=== PATIENT | female | born 1935 | race African-American/Black ===

== ENCOUNTER 2020-02-08 20:44 | Inpatient (IN) | payer MEDICARE, OTHER ==
[~2020-02-08] VITALS: Ht 162.6 cm; Wt 65.8 kg
[~2020-02-08 20:44] MED LIST: AMLO1TAB15; ASPI-1497 MT; BENICAR; CLONIDINE; EXFORGE; HYDR100T26 PO; HYDROCODONE/ACETAMINOPHEN; LASIX; LOSA25TA26 MT; METOPROLOL; PHEN100C12 PO; POTA10TA15 MT; VICODIN
[2020-02-08] MEDS ORDERED: LIDOCAINE HCL/EPINEPHRINE 1%-EPI 1:100,000 30 ML VIAL INFIL ONE (21:30)
[2020-02-08] MEDS ORDERED: TETANUS, DIPHTHERIA, PERTUSSIS VAC/PF 0.5ML (>7YR OLD) IM ONE (21:30)
[2020-02-08] MEDS ORDERED: LIDOCAINE 1%/EPI 1:100,000 10 ML VIAL IJ SCH (23:15)
[2020-02-09] VITALS (11 sets, daily range): BP systolic 133–188; BP diastolic 67–84
[2020-02-09 00:01] LABS: CHLORIDE 110 mEq/L (98-107)
[2020-02-09 01:06] LABS: MEAN CORPUSCULAR VOLUME 53.7 fL (81.0-99.0); MEAN PLATELET VOLUME 8.4 fl (7.4-10.4); PLATELET 280 x1000/uL (130-400); RED BLOOD CELL COUNT 2.45 mill/uL (4.2-5.4); RED CELL DISTRIBUTION WIDTH 22.2 % (11.6-14.6)
[2020-02-09 01:29] LABS: HEMATOCRIT. 13.2 % (36.0-48.0); HEMOGLOBIN. 3.9 g/dL (12.0-16.0)
[2020-02-09 02:30] LABS: PLATELET ESTIMATE NORMAL
[2020-02-09] MEDS ORDERED: IOHEXOL-300 100 ML BOTTLE ONE (03:13)
[2020-02-09 09:24] LABS: CLARITY URINE CLOUDY (CLEAR); COLOR URINE YELLOW (YELLOW); KETONES URINE NEGATIVE (NEGATIVE); LEUKOCYTE ESTERASE URINE 1+ (NEGATIVE); NITRITE URINE POSITIVE (NEGATIVE); OCCULT BLOOD URINE NEGATIVE (NEGATIVE); PROTEIN URINE NEGATIVE (NEGATIVE); SPECIFIC GRAVITY URINE 1.025 (1.005-1.030); UROBILINOGEN URINE 0.2 E.U./dL (0.2-1.0)
[2020-02-09] MEDS: CLONIDINE 0.1MG TABLET PO PRN ×2 (11:41→23:49)
[2020-02-09] MEDS ORDERED: PHEN-434 MT (13:42)
[2020-02-09] MEDS ORDERED: APIX2.5T PO (13:42)
[2020-02-09] MEDS ORDERED: MIRT15TA6 PO (13:42)
[2020-02-09] MEDS ORDERED: CLON0.1T PO (13:42)
[2020-02-09] MEDS ORDERED: SERT20OR6 PO (13:42)
[2020-02-09] MEDS ORDERED: METO-293 PO (13:43)
[2020-02-09] MEDS ORDERED: INFLUENZA VACCINE 05/PF 0.5 ML VIAL IM ONE (14:00)
[2020-02-09 14:32] LABS: TOTAL IRON BINDING CAPACITY 401 ug/dL (250-450)
[2020-02-09 14:33] LABS: HEMATOCRIT 18.7 % (36.0-48.0); HEMOGLOBIN 5.7 g/dL (12.0-16.0)
[2020-02-09] MEDS ORDERED: METO25TA6 PO (15:01)
[2020-02-09] MEDS: HYDRALAZINE HCL 100MG TABLET PO SCH (21:53)
[2020-02-09] MEDS: METOPROLOL TARTRATE 25MG TABLET PO SCH (21:53)
[2020-02-10] VITALS (9 sets, daily range): BP systolic 120–175; BP diastolic 52–81
[2020-02-10] MEDS: HYDRALAZINE HCL 100MG TABLET PO SCH ×3 (05:25→21:29)
[2020-02-10] MEDS ORDERED: SORBITOL 70% SOLN 30ML PO SCH (07:00)
[2020-02-10 07:45] LABS: CHLORIDE 111 mEq/L (98-107)
[2020-02-10 09:00] LABS: HEMATOCRIT. 23.5 % (36.0-48.0); HEMOGLOBIN. 7.6 g/dL (12.0-16.0); MEAN CORPUSCULAR HEMOGLOBIN 21.8 pg (28.0-32.0); MEAN CORPUSCULAR VOLUME 67.6 fL (81.0-99.0); MEAN PLATELET VOLUME 8.5 fl (7.4-10.4); PLATELET 219 x1000/uL (130-400); RED BLOOD CELL COUNT 3.47 mill/uL (4.2-5.4); RED CELL DISTRIBUTION WIDTH 35.5 % (11.6-14.6)
[2020-02-10] MEDS ORDERED: CLONIDINE 0.1MG TABLET PO SCH (09:00)
[2020-02-10] MEDS: METOPROLOL TARTRATE 25MG TABLET PO SCH ×2 (09:20→21:28)
[2020-02-10] MEDS: CLONIDINE 0.1MG TABLET PO SCH ×2 (09:21→21:29)
[2020-02-10 11:00] LABS: HEMATOCRIT 25.6 % (36.0-48.0); HEMOGLOBIN 8.3 g/dL (12.0-16.0)
[2020-02-10] MEDS: IRON SUCROSE COMPLEX 100 MG/5 ML ML IV SCH (12:00)
[2020-02-10 17:06] LABS: PLATELET ESTIMATE NORMAL
[2020-02-10 18:17] LABS: HEMATOCRIT 22.7 % (36.0-48.0); HEMOGLOBIN 7.3 g/dL (12.0-16.0)
[2020-02-11] VITALS (7 sets, daily range): BP systolic 101–158; BP diastolic 38–65
[2020-02-11 06:46] LABS: HEMATOCRIT. 23.1 % (36.0-48.0); HEMOGLOBIN. 7.5 g/dL (12.0-16.0); MEAN CORPUSCULAR HEMOGLOBIN 21.9 pg (28.0-32.0); MEAN CORPUSCULAR VOLUME 67.5 fL (81.0-99.0); MEAN PLATELET VOLUME 8.4 fl (7.4-10.4); PLATELET 217 x1000/uL (130-400); RED BLOOD CELL COUNT 3.42 mill/uL (4.2-5.4)
[2020-02-11] MEDS: HYDRALAZINE HCL 100MG TABLET PO SCH ×3 (06:49→21:36)
[2020-02-11 07:04] LABS: CHLORIDE 112 mEq/L (98-107)
[2020-02-11] MEDS: CLONIDINE 0.1MG TABLET PO SCH ×2 (08:51→21:36)
[2020-02-11] MEDS: METOPROLOL TARTRATE 25MG TABLET PO SCH ×2 (08:52→21:36)
[2020-02-11] MEDS ORDERED: AMLODIPINE 5MG TABLET PO NR (11:30)
[2020-02-11] MEDS: IRON SUCROSE COMPLEX 100 MG/5 ML ML IV SCH (12:08)
[2020-02-11 13:16] LABS: NUCLEATED RED BLOOD CELLS 2 /100 WBC
[2020-02-11 13:17] LABS: PLATELET ESTIMATE NORMAL
[2020-02-11] MEDS ORDERED: SORBITOL 70% SOLN 30ML PO PRN (13:30)
[2020-02-11] MEDS: AMLODIPINE 5MG TABLET PO SCH (21:36)
[2020-02-12] VITALS: BP 130/55
[2020-02-12 04:00] VITALS: BP 117/63
[2020-02-12] MEDS: HYDRALAZINE HCL 100MG TABLET PO SCH ×2 (06:44→13:00)
[2020-02-12 08:00] VITALS: BP 169/95
[2020-02-12] MEDS: CLONIDINE 0.1MG TABLET PO SCH (08:51)
[2020-02-12] MEDS: METOPROLOL TARTRATE 25MG TABLET PO SCH (08:51)
[2020-02-12] MEDS: AMLODIPINE 5MG TABLET PO SCH (08:51)
[2020-02-12] MEDS ORDERED: ACETAMINOPHEN 650MG/20.3ML UDC PO PRN (11:15)
[2020-02-12] MEDS ORDERED: ACETAMINOPHEN 325MG TABLET PO PRN (11:15)
[2020-02-12] MEDS: IRON SUCROSE COMPLEX 100 MG/5 ML ML IV SCH (11:19)
[2020-02-12 12:00] VITALS: BP 143/56
[2020-02-12 12:01] LABS: HEMATOCRIT. 25.5 % (36.0-48.0); MEAN CORPUSCULAR VOLUME 69.7 fL (81.0-99.0); MEAN PLATELET VOLUME 8.5 fl (7.4-10.4); PLATELET 216 x1000/uL (130-400); RED BLOOD CELL COUNT 3.65 mill/uL (4.2-5.4); RED CELL DISTRIBUTION WIDTH 37.3 % (11.6-14.6)
[2020-02-12 12:36] LABS: CHLORIDE 109 mEq/L (98-107)
[2020-02-12 12:58] LABS: NUCLEATED RED BLOOD CELLS 1 /100 WBC
[2020-02-12 12:59] LABS: PLATELET ESTIMATE NORMAL
[2020-02-12] MEDS ORDERED: LIDOCAINE 5% PATCH TOP ONE (13:00)
[2020-02-12 16:00] VITALS: BP 144/64
[2020-02-12 16:36] VITALS: BP 144/64
== END 2020-02-12 18:41 | disposition home health service (06) | DRG 384 ==
LOC: ER 20:44 → 5WST 02-09 02:37 → CANRESERV 02-09 03:53 → ENRESERV 02-09 03:53
PROVIDERS: ADMIT Internal Medicine; ATTEND Internal Medicine
PROC: 0HQ1XZZ Repair Face Skin, External Approach (ICD-10-PCS; 2020-02-08)
PROC: 30233N1 Transfusion of Nonautologous Red Blood Cells into Peripheral Vein, Percutaneous Approach (ICD-10-PCS; principal; 2020-02-09)
DX: S01.91XA Laceration without foreign body of unspecified part of head, initial encounter (principal); D50.0 Iron deficiency anemia secondary to blood loss (chronic); G40.909 Epilepsy, unspecified, not intractable, without status epilepticus; I10 Essential (primary) hypertension; E87.6 Hypokalemia; F03.90 Unspecified dementia, unspecified severity, without behavioral disturbance, psychotic disturbance, mood disturbance, and anxiety; E78.00 Pure hypercholesterolemia, unspecified; M19.90 Unspecified osteoarthritis, unspecified site; F02.80 Dementia in other diseases classified elsewhere, unspecified severity, without behavioral disturbance, psychotic disturbance, mood disturbance, and anxiety; S09.90XA Unspecified injury of head, initial encounter; E88.09 Other disorders of plasma-protein metabolism, not elsewhere classified; R17 Unspecified jaundice; K21.9 Gastro-esophageal reflux disease without esophagitis; I27.20 Pulmonary hypertension, unspecified; I34.0 Nonrheumatic mitral (valve) insufficiency; W06.XXXA Fall from bed, initial encounter; Z86.73 Personal history of transient ischemic attack (TIA), and cerebral infarction without residual deficits; Z79.82 Long term (current) use of aspirin; Z79.899 Other long term (current) drug therapy; Z90.710 Acquired absence of both cervix and uterus; Z79.01 Long term (current) use of anticoagulants; Y93.89 Activity, other specified; Y92.89 Other specified places as the place of occurrence of the external cause; Y99.8 Other external cause status; I25.10 Atherosclerotic heart disease of native coronary artery without angina pectoris; I48.0 Paroxysmal atrial fibrillation; E80.6 Other disorders of bilirubin metabolism; E44.0 Moderate protein-calorie malnutrition; Z68.24 Body mass index [BMI] 24.0-24.9, adult
CPT/HCPCS: 36415; 71045; 73600; 74177; 80048; 80053; 81003; 82247; 82248; 82728; 83540; 83550; 84484; 85014; 85018; 85025; 86850; 86900; 86920; 90686; 90715; 93005; 93306; 97162; 97530; 99285; P9016; Q9967

== ENCOUNTER 2020-07-21 12:56 | Emergency (ER) | payer MEDICARE, MEDICAID ==
[~2020-07-21] VITALS: Ht 162.6 cm; Wt 54.0 kg
[~2020-07-21 12:56] MED LIST changes: -AMLO1TAB15; -ASPI-1497 MT; -BENICAR; +CLON0.1T PO; -CLONIDINE; +DILT30TA3 MT; +DOCU-272 MT; -EXFORGE; +FERR324T4 MT; +HYDR-4001 PO; -HYDROCODONE/ACETAMINOPHEN; -LASIX; -LOSA25TA26 MT; +METO25TA6 PO; -METOPROLOL; +MIRT15TA6 PO; +PHEN-434 MT; -POTA10TA15 MT; +SERT20OR6 PO; -VICODIN
[2020-07-21 14:07] LABS: HEMATOCRIT. 33.8 % (36.0-48.0); HEMOGLOBIN. 10.9 g/dL (12.0-16.0); MEAN CORPUSCULAR HEMOGLOBIN 27.4 pg (28.0-32.0); MEAN CORPUSCULAR VOLUME 84.7 fL (81.0-99.0); MEAN PLATELET VOLUME 7.2 fl (7.4-10.4); PLATELET 231 x1000/uL (130-400); RED BLOOD CELL COUNT 3.99 mill/uL (4.2-5.4); RED CELL DISTRIBUTION WIDTH 27.6 % (11.6-14.6)
[2020-07-21 14:15] LABS: CHLORIDE 108 mEq/L (98-107)
[2020-07-21 14:18] LABS: PROTHROMBIN TIME 11.2 sec (9.6-11.0)
[2020-07-21 14:27] LABS: PLATELET ESTIMATE NORMAL
[2020-07-21 18:03] VITALS: BP 150/70
== END 2020-07-21 18:35 | disposition home or self-care (01) ==
LOC: ER 12:56
DX: K92.2 Gastrointestinal hemorrhage, unspecified (principal); E78.00 Pure hypercholesterolemia, unspecified; I10 Essential (primary) hypertension; G40.909 Epilepsy, unspecified, not intractable, without status epilepticus; I48.91 Unspecified atrial fibrillation; E11.9 Type 2 diabetes mellitus without complications; Z86.73 Personal history of transient ischemic attack (TIA), and cerebral infarction without residual deficits; Z85.038 Personal history of other malignant neoplasm of large intestine; Z93.3 Colostomy status; Z79.01 Long term (current) use of anticoagulants
CPT/HCPCS: 36415; 74176; 80053; 82270; 85025; 86850; 86900; 93005; 99285

== ENCOUNTER 2021-10-13 00:12 | Inpatient (IN) | payer MEDICARE, OTHER ==
[2021-10-13] VITALS (51 sets, daily range): BP systolic 86–143; BP diastolic 43–101
[~2021-10-13] VITALS: Ht 167.6 cm; Wt 57.2 kg
[~2021-10-13 00:12] MED LIST changes: +DOCU-268 MT; -DOCU-272 MT; +MIRT-89 PO; -MIRT15TA6 PO
[2021-10-13 00:48] LABS: HEMATOCRIT. 28.8 % (36.0-48.0); HEMOGLOBIN. 9.6 g/dL (12.0-16.0); MEAN CORPUSCULAR HEMOGLOBIN 30.3 pg (28.0-32.0); MEAN CORPUSCULAR VOLUME 90.6 fL (81.0-99.0); MEAN PLATELET VOLUME 6.9 fl (7.4-10.4); PLATELET 427 x1000/uL (130-400); RED BLOOD CELL COUNT 3.18 mill/uL (4.2-5.4); RED CELL DISTRIBUTION WIDTH 14.3 % (11.6-14.6)
[2021-10-13 01:03] LABS: CHLORIDE 102 mEq/L (98-107); ETHANOL BLOOD < 10 mg/dL
[2021-10-13] MEDS ORDERED: ALTEPLASE 100MG/VIAL IV STA (01:41)
[2021-10-13] MEDS ORDERED: ALTEPLASE IV STA (01:41)
[2021-10-13] MEDS ORDERED: IOHEXOL-350 100 ML BOTTLE ONE (01:51)
[2021-10-13] MEDS ORDERED: GUAIFENESIN 200MG/10ML SUGAR FREE UDC PO PRN (02:45)
[2021-10-13] MEDS ORDERED: CONTAINER EMPTY IV NR (02:45)
[2021-10-13] MEDS ORDERED: *NO ASPIRIN X 24 HOURS XX SCH (02:45)
[2021-10-13] MEDS ORDERED: ALTEPLASE 50MG/VIAL IV NR (02:45)
[2021-10-13] MEDS ORDERED: IPRATROPIUM/ALBUTEROL 0.5-3(2.5)MG/3ML NEB NEB PRN (02:45)
[2021-10-13] MEDS ORDERED: ONDANSETRON HCL 4MG/2ML INJ IV PRN (02:45)
[2021-10-13] MEDS ORDERED: DEXTROSE 50% WATER 50ML SYRINGE IV PRN (02:45)
[2021-10-13] MEDS ORDERED: ACETAMINOPHEN 325MG TABLET PO PRN ×2 (02:45)
[2021-10-13] MEDS ORDERED: ENOXAPARIN 40MG/0.4ML SYR SUBCUT SCH (02:45)
[2021-10-13] MEDS ORDERED: ALTEPLASE IV NR (02:45)
[2021-10-13] MEDS ORDERED: HYDROCODONE/ACETAMINOPHEN 5/325MG TABLET PO PRN (02:45)
[2021-10-13] MEDS ORDERED: CLONIDINE 0.1MG TABLET PO PRN (02:45)
[2021-10-13] MEDS ORDERED: MAGNESIUM/ALUMINUM HYDROXIDE/SIMETHICONE 30ML UDC PO PRN (02:45)
[2021-10-13] MEDS ORDERED: ENOXAPARIN 30MG/0.3ML SYR SUBCUT SCH (04:01)
[2021-10-13 05:56] LABS: BASOPHILS % 0.2 % (0.0-2.0); CHLORIDE 101 mEq/L (98-107); HEMATOCRIT. 30.4 % (36.0-48.0); HEMOGLOBIN. 10.2 g/dL (12.0-16.0); LYMPHOCYTES % 7.1 % (20.0-50.0); MEAN PLATELET VOLUME 7.1 fl (7.4-10.4); NEUTROPHILS % 87.7 % (40.0-76.0); PLATELET 429 x1000/uL (130-400); RED BLOOD CELL COUNT 3.38 mill/uL (4.2-5.4); RED CELL DISTRIBUTION WIDTH 14.5 % (11.6-14.6)
[2021-10-13 06:11] LABS: PHOSPHORUS 1.7 mg/dL (2.5-4.9)
[2021-10-13 06:29] LABS: FOLIC ACID (FOLATE) SERUM 8.6 ng/mL (>5.38)
[2021-10-13 08:10] LABS: TOTAL IRON BINDING CAPACITY 141 ug/dL (250-450)
[2021-10-13] MEDS: INSULIN LISPRO 100 UNITS/ML SUBCUT SCH ×4 (08:20→21:00)
[2021-10-13] MEDS: BLOOD SUGAR DIAGNOSTIC STRIP TEST SCH ×4 (09:00→21:18)
[2021-10-13] MEDS ORDERED: NALOXONE HCL 0.4MG/ML VIAL IV PRN (09:45)
[2021-10-13] MEDS: MORPHINE SULFATE 2 MG/ML CPJ (NOT FOR IM USE) IV PRN ×3 (10:03→20:16)
[2021-10-13 10:13] LABS: PLATELET ESTIMATE INCREASED
[2021-10-13] MEDS ORDERED: PANTOPRAZOLE SODIUM 40 MG/VIAL IV NR (12:30)
[2021-10-13] MEDS: SODIUM CHLORIDE 0.9% 1,000 ML IV SCH (14:11)
[2021-10-13 15:28] LABS: CLARITY URINE TURBID (CLEAR); COLOR URINE RED (YELLOW); KETONES URINE NEGATIVE (NEGATIVE); LEUKOCYTE ESTERASE URINE 3+ (NEGATIVE); NITRITE URINE POSITIVE (NEGATIVE); OCCULT BLOOD URINE 2+ (NEGATIVE); PH URINE >=9.0 (4.5-8.0); PROTEIN URINE 3+ (NEGATIVE); UROBILINOGEN URINE 0.2 E.U./dL (0.2-1.0)
[2021-10-13 15:51] LABS: *AMPHETAMINES SCREEN URINE NEGATIVE (NEGATIVE); *BARBITURATES SCREEN URINE NEGATIVE (NEGATIVE); *BENZODIAZEPINES SCREEN URINE NEGATIVE (NEGATIVE); *COCAINE SCREEN URINE NEGATIVE (NEGATIVE); CANNABINOID URINE SCREEN NEGATIVE (NEGATIVE); METHADONE URINE SCREEN NEGATIVE (NEGATIVE); OPIATES URINE SCREEN PRESUMTIVE POSITIVE (NEGATIVE); PHENCYCLIDINE URINE SCREEN NEGATIVE (NEGATIVE)
[2021-10-13] MEDS: CEFEPIME 2,000 MG in DEXT 5% WATER 100 ML IV SCH (17:19)
[2021-10-13] MEDS ORDERED: VANCOMYCIN 1.25GM PMX (XELLIA) 250 ML IV NR (18:00)
[2021-10-13] MEDS ORDERED: DILTIAZEM HCL 5MG/ML 5ML VIAL IV NR (18:15)
[2021-10-13] MEDS: PANTOPRAZOLE SODIUM 40 MG/VIAL IV SCH (18:39)
[2021-10-13] MEDS ORDERED: AMIODARONE HCL 150 MG in DEXT 5% WATER 100 ML IV NR (20:00)
[2021-10-13] MEDS: AMIODARONE HCL 900 MG in DEXT 5% WATER 482 ML IV SCH (20:08)
[2021-10-13] MEDS: ACETAMINOPHEN 650MG SUPP PR PRN (20:20)
[2021-10-13] MEDS: PHENYTOIN SODIUM 100MG/2ML VIAL IV SCH (21:25)
[2021-10-13] MEDS ORDERED: PHENYLEPHRINE 50 MG in DEXT 5% WATER 245 ML IV PRN (22:00)
[2021-10-13] MEDS ORDERED: VASOPRESSIN 20 UNIT in SODIUM CHLORIDE 0.9% 99 ML IV PRN (22:00)
[2021-10-13] MEDS ORDERED: FURO20TA4 MT (22:25)
[2021-10-14] VITALS (90 sets, daily range): BP systolic 72–141; BP diastolic 41–113
[2021-10-14] MEDS: MORPHINE SULFATE 2 MG/ML CPJ (NOT FOR IM USE) IV PRN ×5 (01:19→21:53)
[2021-10-14] MEDS ORDERED: IOHEXOL-300 100 ML BOTTLE ONE (03:52)
[2021-10-14] MEDS: SODIUM CHLORIDE 0.9% 1,000 ML IV SCH ×2 (03:57→16:51)
[2021-10-14 05:47] LABS: HEMATOCRIT. 24.4 % (36.0-48.0); HEMOGLOBIN. 8.2 g/dL (12.0-16.0); MEAN CORPUSCULAR HEMOGLOBIN 30.2 pg (28.0-32.0); MEAN CORPUSCULAR VOLUME 89.4 fL (81.0-99.0); MEAN PLATELET VOLUME 6.7 fl (7.4-10.4); PLATELET 359 x1000/uL (130-400); RED BLOOD CELL COUNT 2.72 mill/uL (4.2-5.4); RED CELL DISTRIBUTION WIDTH 14.3 % (11.6-14.6)
[2021-10-14 05:52] LABS: CHLORIDE 106 mEq/L (98-107); INR 1.4; PROTHROMBIN TIME 14.7 sec (9.6-11.0)
[2021-10-14] MEDS: BLOOD SUGAR DIAGNOSTIC STRIP TEST SCH ×4 (05:57→21:00)
[2021-10-14 06:01] LABS: PHOSPHORUS 2.6 mg/dL (2.5-4.9)
[2021-10-14] MEDS: PHENYTOIN SODIUM 100MG/2ML VIAL IV SCH ×3 (06:04→21:14)
[2021-10-14] MEDS: INSULIN LISPRO 100 UNITS/ML SUBCUT SCH ×4 (06:05→21:00)
[2021-10-14] MEDS: PANTOPRAZOLE SODIUM 40 MG/VIAL IV SCH ×2 (08:10→16:51)
[2021-10-14] MEDS: CEFEPIME 2,000 MG in DEXT 5% WATER 100 ML IV SCH (08:10)
[2021-10-14] MEDS: FERROUS SULFATE 325MG TABLET PO SCH (09:00)
[2021-10-14] MEDS ORDERED: ENOXAPARIN 30MG/0.3ML SYR SUBCUT SCH (09:00)
[2021-10-14] MEDS ORDERED: SODIUM CHLORIDE 0.9% 1,000 ML IV ONE (13:00)
[2021-10-14] MEDS ORDERED: DIGOXIN 500MCG/2ML AMP IV NR (13:30)
[2021-10-14] MEDS: PIPERACILLIN/TAZOBACTAM 3.375 G in DEXTROSE 5% WATER 50 ML IV SCH ×2 (13:36→21:14)
[2021-10-14 14:01] LABS: PLATELET ESTIMATE NORMAL
[2021-10-14] MEDS ORDERED: VANCOMYCIN 1G PREMIX 200 ML IV SCH (16:00)
[2021-10-14] MEDS: AMIODARONE HCL 900 MG in DEXT 5% WATER 482 ML IV SCH (16:48)
[2021-10-15] VITALS (102 sets, daily range): BP systolic 85–137; BP diastolic 40–82
[2021-10-15] MEDS: MORPHINE SULFATE 2 MG/ML CPJ (NOT FOR IM USE) IV PRN ×4 (04:50→21:03)
[2021-10-15] MEDS: PHENYTOIN SODIUM 100MG/2ML VIAL IV SCH ×3 (05:01→21:03)
[2021-10-15] MEDS: PIPERACILLIN/TAZOBACTAM 3.375 G in DEXTROSE 5% WATER 50 ML IV SCH ×2 (05:01→14:14)
[2021-10-15] MEDS: SODIUM CHLORIDE 0.9% 1,000 ML IV SCH ×2 (05:01→21:02)
[2021-10-15 05:09] LABS: MEAN CORPUSCULAR HEMOGLOBIN 29.4 pg (28.0-32.0); MEAN CORPUSCULAR VOLUME 89.8 fL (81.0-99.0); MEAN PLATELET VOLUME 7.4 fl (7.4-10.4); PLATELET 244 x1000/uL (130-400); RED CELL DISTRIBUTION WIDTH 14.5 % (11.6-14.6)
[2021-10-15 05:12] LABS: CHLORIDE 111 mEq/L (98-107)
[2021-10-15 05:16] LABS: HEMOGLOBIN. 6.7 g/dL (12.0-16.0)
[2021-10-15 05:17] LABS: HEMATOCRIT. 20.6 % (36.0-48.0)
[2021-10-15] MEDS: PANTOPRAZOLE SODIUM 40 MG/VIAL IV SCH ×2 (08:59→16:20)
[2021-10-15] MEDS: VANCOMYCIN 750MG PREMIX 150 ML IV SCH (09:48)
[2021-10-15 11:41] LABS: PLATELET ESTIMATE NORMAL
[2021-10-15] MEDS: ACETAMINOPHEN 650MG SUPP PR PRN (15:49)
[2021-10-15] MEDS: MEROPENEM 1,000 MG in SODIUM CHLORIDE 0.9% 100 ML IV SCH (16:11)
[2021-10-16] VITALS (66 sets, daily range): BP systolic 85–131; BP diastolic 47–86
[2021-10-16] MEDS: AMIODARONE HCL 900 MG in DEXT 5% WATER 482 ML IV SCH (00:52)
[2021-10-16] MEDS: MEROPENEM 1,000 MG in SODIUM CHLORIDE 0.9% 100 ML IV SCH ×2 (05:06→15:00)
[2021-10-16] MEDS: PHENYTOIN SODIUM 100MG/2ML VIAL IV SCH ×3 (05:06→22:01)
[2021-10-16] MEDS: VANCOMYCIN 750MG PREMIX 150 ML IV SCH ×2 (05:07→22:01)
[2021-10-16] MEDS: MORPHINE SULFATE 2 MG/ML CPJ (NOT FOR IM USE) IV PRN ×5 (05:07→20:05)
[2021-10-16 05:56] LABS: CHLORIDE 111 mEq/L (98-107)
[2021-10-16 06:01] LABS: PHOSPHORUS 2.7 mg/dL (2.5-4.9)
[2021-10-16 06:07] LABS: MEAN CORPUSCULAR HEMOGLOBIN 29.9 pg (28.0-32.0); MEAN CORPUSCULAR VOLUME 89.2 fL (81.0-99.0); MEAN PLATELET VOLUME 7.6 fl (7.4-10.4); PLATELET 212 x1000/uL (130-400); RED BLOOD CELL COUNT 3.03 mill/uL (4.2-5.4)
[2021-10-16] MEDS: PANTOPRAZOLE SODIUM 40 MG/VIAL IV SCH ×2 (08:08→19:05)
[2021-10-16] MEDS: FERROUS SULFATE 325MG TABLET PO SCH (08:08)
[2021-10-16] MEDS ORDERED: POTASSIUM PHOS,M-BASIC-D-BASIC 15 MMOL in DEXT 5% WATER 245 ML IV SCH (10:00)
[2021-10-16 10:39] LABS: PLATELET ESTIMATE NORMAL
[2021-10-16] MEDS ORDERED: DIGOXIN 500MCG/2ML AMP IV NR (11:00)
[2021-10-16] MEDS: SODIUM CHLORIDE 0.9% 1,000 ML IV SCH (11:30)
[2021-10-16] MEDS ORDERED: DEXT 5%/0.9% NACL 1,000 ML IV SCH (14:15)
[2021-10-16] MEDS: DEXT 5%/0.9% NACL 1,000 ML IV SCH (14:37)
[2021-10-16] MEDS ORDERED: MAGNESIUM 2 G PREMIX 50 ML IV NR (16:00)
[2021-10-16] MEDS: DIGOXIN 500MCG/2ML AMP IV SCH (19:05)
[2021-10-17] VITALS (12 sets, daily range): BP systolic 109–140; BP diastolic 52–87
[2021-10-17] MEDS: MORPHINE SULFATE 2 MG/ML CPJ (NOT FOR IM USE) IV PRN ×5 (00:26→17:54)
[2021-10-17] MEDS: DEXT 5%/0.9% NACL 1,000 ML IV SCH ×3 (01:09→21:38)
[2021-10-17] MEDS: DILTIAZEM HCL 5MG/ML 5ML VIAL IV PRN (01:44)
[2021-10-17] MEDS: MEROPENEM 1,000 MG in SODIUM CHLORIDE 0.9% 100 ML IV SCH ×2 (04:42→17:09)
[2021-10-17] MEDS: PHENYTOIN SODIUM 100MG/2ML VIAL IV SCH ×3 (06:23→21:38)
[2021-10-17 06:28] LABS: HEMATOCRIT. 27.7 % (36.0-48.0); HEMOGLOBIN. 9.2 g/dL (12.0-16.0); MEAN CORPUSCULAR HEMOGLOBIN 29.3 pg (28.0-32.0); MEAN CORPUSCULAR VOLUME 88.3 fL (81.0-99.0); MEAN PLATELET VOLUME 7.7 fl (7.4-10.4); PLATELET 198 x1000/uL (130-400); RED BLOOD CELL COUNT 3.13 mill/uL (4.2-5.4); RED CELL DISTRIBUTION WIDTH 15.2 % (11.6-14.6)
[2021-10-17 06:39] LABS: CHLORIDE 115 mEq/L (98-107)
[2021-10-17 06:53] LABS: PHOSPHORUS 2.5 mg/dL (2.5-4.9)
[2021-10-17] MEDS: PANTOPRAZOLE SODIUM 40 MG/VIAL IV SCH ×2 (08:36→17:09)
[2021-10-17 11:57] LABS: PLATELET ESTIMATE NORMAL
[2021-10-17] MEDS: DILTIAZEM HCL 30MG TABLET PO SCH ×2 (14:00→21:39)
[2021-10-17] MEDS: VANCOMYCIN 750MG PREMIX 150 ML IV SCH (17:09)
[2021-10-17] MEDS: DIGOXIN 500MCG/2ML AMP IV SCH (17:10)
[2021-10-18] VITALS (12 sets, daily range): BP systolic 106–163; BP diastolic 59–85
[2021-10-18] MEDS: MEROPENEM 1,000 MG in SODIUM CHLORIDE 0.9% 100 ML IV SCH ×2 (04:12→15:17)
[2021-10-18] MEDS: PHENYTOIN SODIUM 100MG/2ML VIAL IV SCH ×3 (05:58→21:44)
[2021-10-18] MEDS: MORPHINE SULFATE 2 MG/ML CPJ (NOT FOR IM USE) IV PRN (05:58)
[2021-10-18] MEDS: DILTIAZEM HCL 30MG TABLET PO SCH ×3 (06:00→21:44)
[2021-10-18 06:48] LABS: HEMATOCRIT. 25.5 % (36.0-48.0); HEMOGLOBIN. 8.5 g/dL (12.0-16.0); MEAN CORPUSCULAR HEMOGLOBIN 29.2 pg (28.0-32.0); MEAN CORPUSCULAR VOLUME 87.9 fL (81.0-99.0); MEAN PLATELET VOLUME 7.7 fl (7.4-10.4); PLATELET 195 x1000/uL (130-400); RED CELL DISTRIBUTION WIDTH 15.5 % (11.6-14.6)
[2021-10-18 07:08] LABS: CHLORIDE 121 mEq/L (98-107)
[2021-10-18 08:12] LABS: PLATELET ESTIMATE NORMAL
[2021-10-18] MEDS: FERROUS SULFATE 325MG TABLET PO SCH (08:32)
[2021-10-18] MEDS: PANTOPRAZOLE SODIUM 40 MG/VIAL IV SCH ×2 (08:32→17:19)
[2021-10-18] MEDS: DEXT 5%/0.9% NACL 1,000 ML IV SCH ×2 (08:32→17:16)
[2021-10-18] MEDS: VANCOMYCIN 750MG PREMIX 150 ML IV SCH (09:40)
[2021-10-18] MEDS ORDERED: POTASSIUM CHLORIDE INJ 40 MEQ in DEXT 5% WATER 250 ML IV ONE (11:00)
[2021-10-18] MEDS: DIGOXIN 500MCG/2ML AMP IV SCH (17:20)
[2021-10-18] MEDS: HYDRALAZINE 20MG/ML VIAL IV PRN (22:37)
[2021-10-19] VITALS (13 sets, daily range): BP systolic 133–169; BP diastolic 68–91
[2021-10-19] MEDS: DEXT 5%/0.9% NACL 1,000 ML IV SCH ×2 (01:43→12:39)
[2021-10-19] MEDS: DILTIAZEM HCL 5MG/ML 5ML VIAL IV PRN (03:29)
[2021-10-19] MEDS: MEROPENEM 1,000 MG in SODIUM CHLORIDE 0.9% 100 ML IV SCH ×2 (04:45→17:03)
[2021-10-19] MEDS: DILTIAZEM HCL 30MG TABLET PO SCH ×3 (05:30→22:00)
[2021-10-19] MEDS: PHENYTOIN SODIUM 100MG/2ML VIAL IV SCH ×3 (05:30→22:04)
[2021-10-19] MEDS: MORPHINE SULFATE 2 MG/ML CPJ (NOT FOR IM USE) IV PRN ×4 (06:13→19:59)
[2021-10-19 07:24] LABS: HEMATOCRIT. 25.7 % (36.0-48.0); HEMOGLOBIN. 8.6 g/dL (12.0-16.0); MEAN CORPUSCULAR HEMOGLOBIN 29.3 pg (28.0-32.0); MEAN CORPUSCULAR VOLUME 87.6 fL (81.0-99.0); MEAN PLATELET VOLUME 7.9 fl (7.4-10.4); PLATELET 246 x1000/uL (130-400); RED BLOOD CELL COUNT 2.93 mill/uL (4.2-5.4); RED CELL DISTRIBUTION WIDTH 15.4 % (11.6-14.6)
[2021-10-19 07:42] LABS: CHLORIDE 123 mEq/L (98-107)
[2021-10-19 08:07] LABS: DIGOXIN 1.4 ng/mL (0.9-2.0)
[2021-10-19] MEDS: PANTOPRAZOLE SODIUM 40 MG/VIAL IV SCH ×2 (08:56→17:31)
[2021-10-19] MEDS ORDERED: POTASSIUM CHLORIDE INJ 40 MEQ in DEXT 5% WATER 250 ML IV ONE (12:15)
[2021-10-19] MEDS: KCL 20MEQ/100ML X 2 FOR TOTAL KCL 40MEQ/200ML IV SCH ×2 (12:41→14:45)
[2021-10-19 13:41] LABS: PLATELET ESTIMATE NORMAL
[2021-10-19] MEDS: DIGOXIN 500MCG/2ML AMP IV SCH (17:31)
[2021-10-20] VITALS (8 sets, daily range): BP systolic 145–179; BP diastolic 61–81
[2021-10-20] MEDS: DEXT 5%/0.9% NACL 1,000 ML IV SCH (03:07)
[2021-10-20] MEDS: MEROPENEM 1,000 MG in SODIUM CHLORIDE 0.9% 100 ML IV SCH (03:07)
[2021-10-20] MEDS: MORPHINE SULFATE 2 MG/ML CPJ (NOT FOR IM USE) IV PRN ×2 (03:07→13:44)
[2021-10-20] MEDS: DILTIAZEM HCL 30MG TABLET PO SCH ×2 (05:19→13:22)
[2021-10-20] MEDS: HYDRALAZINE 20MG/ML VIAL IV PRN ×2 (05:19→12:43)
[2021-10-20] MEDS: PHENYTOIN SODIUM 100MG/2ML VIAL IV SCH ×2 (05:19→13:22)
[2021-10-20] MEDS: PANTOPRAZOLE SODIUM 40 MG/VIAL IV SCH (08:02)
[2021-10-20] MEDS: FERROUS SULFATE 325MG TABLET PO SCH (08:02)
== END 2021-10-20 15:20 | disposition hospice, home (50) | DRG 720 ==
LOC: ER 00:12 → MICUSO 02:16 → SUPCPDRO 02:43 → ENRESERV 10:04 → 5EST 10-16 16:27
PROVIDERS: ADMIT Internal Medicine; ATTEND Internal Medicine
PROC: 3E03317 Introduction of Other Thrombolytic into Peripheral Vein, Percutaneous Approach (ICD-10-PCS; principal; 2021-10-13)
PROC: 02HV33Z Insertion of Infusion Device into Superior Vena Cava, Percutaneous Approach (ICD-10-PCS; 2021-10-14)
PROC: B548ZZA Ultrasonography of Superior Vena Cava, Guidance (ICD-10-PCS; 2021-10-14)
PROC: 30233N1 Transfusion of Nonautologous Red Blood Cells into Peripheral Vein, Percutaneous Approach (ICD-10-PCS; 2021-10-15)
DX: A41.51 Sepsis due to Escherichia coli [E. coli] (principal); R65.21 Severe sepsis with septic shock; K65.1 Peritoneal abscess; G92.8 Other toxic encephalopathy; E43 Unspecified severe protein-calorie malnutrition; C18.7 Malignant neoplasm of sigmoid colon; D64.9 Anemia, unspecified; Z66 Do not resuscitate; I27.20 Pulmonary hypertension, unspecified; I48.91 Unspecified atrial fibrillation; R47.01 Aphasia; I50.32 Chronic diastolic (congestive) heart failure; I11.0 Hypertensive heart disease with heart failure; K57.90 Diverticulosis of intestine, part unspecified, without perforation or abscess without bleeding; I25.10 Atherosclerotic heart disease of native coronary artery without angina pectoris; N39.0 Urinary tract infection, site not specified; K82.8 Other specified diseases of gallbladder; R59.0 Localized enlarged lymph nodes; R29.717 NIHSS score 17; E78.00 Pure hypercholesterolemia, unspecified; R79.1 Abnormal coagulation profile; F03.90 Unspecified dementia, unspecified severity, without behavioral disturbance, psychotic disturbance, mood disturbance, and anxiety; M19.90 Unspecified osteoarthritis, unspecified site; Z93.3 Colostomy status; I69.322 Dysarthria following cerebral infarction; Z51.5 Encounter for palliative care; Z79.899 Other long term (current) drug therapy; Z68.20 Body mass index [BMI] 20.0-20.9, adult
CPT/HCPCS: 36415; 36573; 70496; 70498; 70551; 71045; 74018; 74178; 80048; 80053; 80162; 80202; 80305; 80320; 81003; 82378; 82607; 82728; 82746; 82962; 83036; 83540; 83550; 83605; 83735; 84100; 84145; 84443; 85018; 85025; 86850; 86900; 86920; 87077; 87186; 92610; 93005; 93306; 97110; 97162; 97166; 97530; 99291; C1725; C9113; J0282; J0360; J0692; J1160; J1165; J2185; J2270; J2405; J2543; J2997; J3370; J3475; J3480; J3490; J7030; J7042; J7050; J7060; P9016; Q9967; G0480